=== PATIENT | female | born 1935 | race Caucasian/White ===

== ENCOUNTER 2023-03-03 08:30 | Outpatient (CLI) | payer MEDICARE, OTHER ==
[2023-03-03] MEDS ORDERED: Iopamidol 300 61% 100 ML VIAL FS ONE (08:42)
== END 2023-03-03 08:31 | disposition home or self-care (01) ==
LOC: CSHCT 08:30
PROVIDERS: ATTEND Physician Assistant Medical
DX: R11.2 Nausea with vomiting, unspecified (principal)
CPT/HCPCS: 74177; 82565; Q9967

== ENCOUNTER 2024-04-11 15:10 | Outpatient (CLI) | payer MEDICARE, OTHER | END 2024-04-11 15:11 | disposition home or self-care (01) | LOC: CSHRAD 15:10 | PROVIDERS: ATTEND Nurse Practitioner | DX: Z11.1 Encounter for screening for respiratory tuberculosis (principal) | CPT/HCPCS: 71046 ==